=== PATIENT | male | born 1980 | race African-American/Black ===

== ENCOUNTER 2016-12-28 23:49 | Emergency (ER) | payer MEDICAID ==
[2016-12-28 23:39] LABS: INFLUENZA A NEG (NEG); INFLUENZA B NEG (NEG)
== END 2016-12-29 00:50 | disposition home or self-care (01) ==
LOC: CFTX 23:49
PROVIDERS: Nurse Practitioner Family
DX: R50.9 Fever, unspecified (principal); R05 Cough; S39.012A Strain of muscle, fascia and tendon of lower back, initial encounter; F17.210 Nicotine dependence, cigarettes, uncomplicated; Z88.1 Allergy status to other antibiotic agents; X58.XXXA Exposure to other specified factors, initial encounter
CPT/HCPCS: 87804; 99283